=== PATIENT | female | born 2005 | race Caucasian/White ===

== ENCOUNTER 2025-02-26 13:15 | Emergency (ER) | payer OTHER, SELFPAY ==
[2025-02-26 13:24] VITALS: BP 121/69
[2025-02-26 15:07] VITALS: BMI 24.8
[2025-02-26] MEDS: DECADRON 10 MG IV (15:19)
[2025-02-26] MEDS: TORADOL 30 MG IV (15:20)
[2025-02-26] MEDS: NSS 1000 IV (15:21)
--- NOTE | 2025-02-26 15:56 | ED.GENMED ---
History of Present Illness
General
Chief Complaint: Throat Problem
Source: patient
Exam Limitations: none
Time Seen by Provider: 02/26/25 14:26
Nursing documentation reviewed up to this point in time: agreed with
History of Present Illness
History of Present Illness:
pt is a 19 y/o F with no sig pmh
here with sore throat and fever x 3 days
painfuls wallowing
no voice change
sore glands
denies cough, nausea, vomiting, dirarhea, abd pain, rash, neck stiffness
taking tylenol and motrin for pain without relief
some topical sprays and tea with honey
pt says she went to 2 days ago and was tested for strep which was neg, mono neg
Past History
Past History
ED Past Medical History: None
ED Past Surgical History: None
Social History
Tobacco: No 2nd hand smoke
Review of Systems
Review of Systems
Allergies reviewed?: Yes
All Other Systems: Not applicable
Phy Exam
Physical Exam
Physical Exam:
GENERAL: Alert , in no apparent distress
EYE: pupils equal and reactive
NECK: Supple
tender small BRANDON ant cervical chair
ENT: b/l TM s clear, moderate pharynx erythema, trace exudate, tonsils not swollen 2+ uvula midline
tolerating secretions
CARDIAC: Regular rate and rhythm, no edema
LUNGS: Clear breath sounds bilaterally, no acute respiratory distress, no wheezes/rales/rhonchi, occ cough
ABDOMEN: Soft, without focal tenderness, no r/g, no cvat, normal bowel sounds
NEUROLOGICAL: Alert and oriented, no focal neuro deficits
SKIN: Warm and dry, skin intact.
PSYCH: Normal and appropriate interaction.
Course
Orders/Labs/Results
Orders:
Orders
02/26/25 14:57
0.9% Sodium Chloride 1000 ml [Nss] 1,000 ml IV BOLUS
Dexamethasone Sod Phosphate [Decadron] 10 mg IV NOW STA
Ketorolac [Toradol] 30 mg IV NOW STA
02/26/25 15:18
Rapid Strep Group A Urgent
JAYESH Source: Throat/Pharynx
Specimen Description:
Date Specimen was Collected: 02/26/25
Time Specimen was Collected: 14:59
02/26/25 15:55
Clindamycin HCl [Cleocin] 300 mg PO NOW STA
Vital Signs
Initial and Last Documented VS:
Initial Vital Signs
Temp Pulse Resp BP Pulse Ox
37.3 C 100 19 121/69 97
02/26/25 13:24 02/26/25 13:24 02/26/25 13:24 02/26/25 13:24 02/26/25 13:24
Last Documented Vital Signs
Temp Pulse Resp BP Pulse Ox
37.3 C 66 16 111/63 99
02/26/25 13:24 02/26/25 16:59 02/26/25 16:59 02/26/25 16:59 02/26/25 16:59
MDM/Problems Addressed
Differential Diagnosis Includes:
tonsillitis, strep
MDM/Problems Addressed:
19 y/o f
3 days fever, sore throat, swollen glands, no cough
rapid strep neg
pain continues despite tyl/motrin
moderate pharyngeal erythmea, trace exudate
tonsils symmetric
normal neck mobility
no muffling of voice
tolrating secretion
doubt deep space infection
4/4 centor criteria
will cover with abx despite rapid strep neg
clinda due to pcn allergy
given toraodl and decadron and feels much bettter
*Critical Care Note
Total Time (30-74mins, 75-104mins- exclusive of procedures): Not Applicable
ED Attending Note
-
Portions of this chart may have been created with voice recognition software.� Occasional wrong word or��sound alike� substitutions may have occurred due to the inherent limitations of voice recognition software.
Discharge Plan
Departure
Patient Disposition: Home (Routine Discharge)
Date of Disposition: 02/26/25
Time of Disposition: 16:30
Patient with high blood pressure during this ER visit?: No
Condition: Fair
Covid-19: Not Applicable
Discharge Problem:
Pharyngitis
Instructions: Sore Throat, Adult (DC), Strep Throat (DC)
Prescriptions:
New
clindamycin HCl 300 mg capsule
300 mg PO QID Qty: 28 0RF
Referrals:
Taylor Navarro [employer]SEKEE[employer] C[employer] [Family Provider] - Follow up in 2-3 days
Stand Alone Forms: Return to Work
Activity Restrictions/Additional Instructions:
YOUR RAPID STREP WAS NEGATIVE
BUT YOU MET CRITERIA FOR TREATING WITH ANTIBIOTICS FOR STREP THROAT
TAKE CLINDAMYCIN 4 TIMES A DAY FOR 7 DAYS
MOTRIN AND TYLENOL FOR PAIN
YOU WERE GIVEN STEROIDS FOR INFLAMMATION (DEXAMETHASONE)
DRINK FLUIDS
RETURN FOR SEVERE PAIN, INABILITY TO SWALLOW, RASH, OR ANY CONCERNS.
Interventions
Interventions:
*Risk Screen - Suicide Last Done: 02/26/25 17:06
*General Assessment Last Done: 02/26/25 13:24
*Neglect/Abuse Screening Last Done: 02/26/25 17:06
*ED- Fall Risk Assessment Last Done: 02/26/25 17:06
*ED COVID-19 Vaccine History Last Done: 02/26/25 13:24
*Nursing Disposition Last Done: 02/26/25 17:06
ED-EENT Assessment Last Done: 02/26/25 15:00
ED- Pulmonary Assessment Last Done: 02/26/25 15:00
Discharge Date and Time
Discharge Date/Time: 02/26/25 17:00
Print Language: PASHTO
[2025-02-26] MEDS: CLEOCIN 300 MG PO (16:50)
[2025-02-26 16:59] VITALS: BP 111/63
== END 2025-02-26 17:00 | disposition home or self-care (01) ==
LOC: EMR 13:15
PROVIDERS: EMERGENCY PHYSICIAN Emergency Medicine; FAMILY PHYSICIAN Nurse Practitioner Adult Health
DX: J02.9 Acute pharyngitis, unspecified (principal); Z88.0 Allergy status to penicillin
CPT/HCPCS: 99282; 96374; 96375; 96361; 87070; 87880

== ENCOUNTER 2025-04-07 14:19 | Emergency (ER) | payer OTHER, SELFPAY ==
[2025-04-07 14:32] VITALS: BP 107/61
[2025-04-07 15:48] VITALS: BMI 24.5
--- NOTE | 2025-04-07 15:51 | ED.GENMED ---
History of Present Illness
General
Chief Complaint: Throat Problem
Source: patient
Exam Limitations: none
Time Seen by Provider: 04/07/25 15:40
History of Present Illness
History of Present Illness:
19-year-old female presents with onset of sore throat fatigue and chills over the past 2 days. She was here about a month ago for similar symptoms. Clinically she met the criteria of strep throat at that time and was treated with clindamycin. She
states she felt much better after the IV medicine here last time and she has been good since then. No known sick contacts. She denies abdominal pain or vomiting. No significant cough or runny nose. No other complaints
Past History
Past History
ED Past Medical History: None
ED Past Surgical History: None
Social History
Tobacco: No 2nd hand smoke
Phy Exam
Physical Exam
Physical Exam:
General: Well-appearing female no acute respiratory distress
HEENT: Normocephalic atraumatic tonsils are erythematous mildly enlarged but symmetric. No exudate no obvious adenopathy anteriorly or posteriorly. No trismus or drooling neck is supple otherwise
Heart: Regular rate and rhythm
Abdomen is soft nontender no organomegaly
Extremities: No cyanosis
Course
Orders/Labs/Results
Orders:
Orders
04/07/25 15:51
0.9% Sodium Chloride 1000 ml [Nss] 1,000 ml IV BOLUS
Dexamethasone Sod Phosphate [Decadron] 10 mg IV NOW STA
Ketorolac [Toradol] 15 mg IV NOW STA
04/07/25 15:52
Test Result ONCE
04/07/25 16:08
Complete Blood Count/With Diff Urgent
Comprehensive Metabolic Panel Urgent
HCG, Serum Qualitative Screen Urgent
Monotest Urgent
04/07/25 17:52
Clindamycin HCl [Cleocin] 300 mg PO NOW STA
Abnormal Lab Results
04/07/25
16:08
WBC 12.9 H 10^3/uL
(4.8-10.8)
Absolute Neuts (auto) 9.9 H 10^3/uL
(1.4-6.5)
Absolute Monos (auto) 1.0 H 10^3/uL
(0.1-0.6)
Neutrophils % 77.2 H %
(42.2-75.2)
Lymphocytes % 12.9 L %
(20.5-51.1)
04/07/25 16:08
04/07/25 16:08
Vital Signs
Initial and Last Documented VS:
Initial Vital Signs
Temp Pulse Resp BP Pulse Ox
99.1 F 78 18 107/61 98
04/07/25 14:32 04/07/25 14:32 04/07/25 14:32 04/07/25 14:32 04/07/25 14:32
Last Documented Vital Signs
Temp Pulse Resp BP Pulse Ox
99.1 F 78 18 107/61 98
04/07/25 14:32 04/07/25 14:32 04/07/25 14:32 04/07/25 14:32 04/07/25 15:51
MDM/Problems Addressed
Differential Diagnosis Includes:
Sore throat fatigue recent symptoms similar to this about a month ago. Consider viral pharyngitis versus mono. Strep testing was neck and throat culture last visit. Will recheck labs. Treat supportively with fluids Toradol and Decadron
*Pulse Oximetry
SaO2: 98
Oxygen Mode of Delivery: Room air
Patient hypoxic: no
*Critical Care Note
Total Time (30-74mins, 75-104mins- exclusive of procedures): Not Applicable
Update Note
Update Note:
Patient with some improvement after initial round of medicine. Suspect pharyngitis by criteria clinically could meet criteria for strep. She has penicillin allergy will start on clindamycin. Recommend ENT follow-up secondary to recurrent nature
ED Attending Note
-
Portions of this chart may have been created with voice recognition software.� Occasional wrong word or��sound alike� substitutions may have occurred due to the inherent limitations of voice recognition software.
Discharge Plan
Departure
Patient Disposition: Home (Routine Discharge)
Date of Disposition: 04/07/25
Time of Disposition: 18:23
Patient with high blood pressure during this ER visit?: No
Discharge Problem:
Pharyngitis
Instructions: Strep Throat (DC)
Prescriptions:
New
clindamycin HCl [Cleocin HCl] 300 mg capsule
300 mg PO Q6H Qty: 27 0RF
No Action
clindamycin HCl 300 mg capsule
300 mg PO QID Qty: 28 0RF
Referrals:
CHICHOM,LEILA [Other]
Juan Rahman MD [Active, Otology]
Activity Restrictions/Additional Instructions:
Continue with ibuprofen and Tylenol at home for pain. Take antibiotics as directed. Return if worse otherwise follow-up with ENT for recurrent
Interventions
Interventions:
*Risk Screen - Suicide Last Done: 04/07/25 14:33
*General Assessment Last Done: 04/07/25 15:48
*Neglect/Abuse Screening Last Done: 04/07/25 15:48
*ED- Fall Risk Assessment Last Done: 04/07/25 15:48
*ED COVID-19 Vaccine History Last Done: 04/07/25 15:48
ED-EENT Assessment Last Done: 04/07/25 15:49
ED- Pulmonary Assessment Last Done: 04/07/25 15:49
Discharge Date and Time
Print Language: TELUGU
[2025-04-07] MEDS: NSS 1000 IV (16:10)
[2025-04-07] MEDS: TORADOL 15 MG IV (16:10)
[2025-04-07] MEDS: DECADRON 10 MG IV (16:11)
[2025-04-07 16:22] LABS: Hematocrit 39.9 % (37.0-47.0); Hemoglobin 13.5 g/dL (12.0-16.0); Mean Corp Hgb Conc. 33.8 g/dL (33.0-37.0); Mean Corpuscular Volume 91.3 fL (81.0-99.0); Nucleated Red Blood Cells % 0 %; Platelet Count 246 10^3/uL (130-400); Red Cell Dist. Width 11.9 % (11.5-14.5)
[2025-04-07 16:31] LABS: HCG, Serum Qualitative Screen Negative
[2025-04-07 16:35] LABS: ALT (SGPT) 13 U/L (0-35); AST (SGOT) 16 U/L (14-36); Albumin 4.6 g/dl (3.5-5.0); Alkaline Phosphatase 56 U/L (38-126); Blood Urea Nitrogen 8 mg/dl (7-17); Calcium 9.5 mg/dl (8.4-10.2); Carbon Dioxide 27 mmol/L (22-30); Chloride 107 mmol/L (98-107); Estimated Creatinine Clearance > 125 ml/min; Glucose 83 mg/dl (70-99); Potassium 4.1 mmol/L (3.5-5.1); Sodium 139 mmol/L (135-145); Total Protein 7.2 g/dl (6.3-8.2); eGFR > 60.00
[2025-04-07] MEDS: CLEOCIN 300 MG PO (18:01)
== END 2025-04-07 18:37 | disposition home or self-care (01) ==
LOC: EMR 14:19
PROVIDERS: Physician Assistant; EMERGENCY PHYSICIAN Emergency Medicine
DX: J02.9 Acute pharyngitis, unspecified (principal)
CPT/HCPCS: 99283; 96374; 96375; 96361; 80053; 84703; 85025; 86308